=== PATIENT | female | born 1955 | race Caucasian/White ===

== ENCOUNTER → 2016-07-17 | Outpatient (CLI) | payer OTHER | LOC: BRMIMAGING 12:59 | DX: Z12.31 Encounter for screening mammogram for malignant neoplasm of breast (principal) | CPT/HCPCS: G0202 ==

== ENCOUNTER → 2017-08-22 | Outpatient (CLI) | payer OTHER | LOC: BRMIMAGING 13:34 | PROVIDERS: ATTEND Family Medicine | DX: Z12.31 Encounter for screening mammogram for malignant neoplasm of breast (principal) ==

== ENCOUNTER → 2018-10-08 | Outpatient (CLI) | payer OTHER | LOC: BRMIMAGING 08:09 ==